=== PATIENT | female | born 1945 | race Caucasian/White ===

== ENCOUNTER 2016-09-15 07:53 | Outpatient (CLI) | payer MEDICARE ==
[2016-09-15 09:40] LABS: ALT (SGPT) 6 U/L (8-55); AST (SGOT) 13 U/L (5-34); Albumin 4.3 g/dL (3.4-4.8); Alkaline Phosphatase 66 U/L (40-150); Anion Gap 16 mmol/L (10-20); BUN (Urea Nitrogen) 13 mg/dL (9.8-20.1); Bilirubin, Total 0.4 mg/dL (0.2-1.2); Calc. Creatinine Clearance 0 mL/min (70-130); Calcium 9.6 mg/dL (7.8-10.44); Carbon Dioxide 25 mmol/L (23-31); Cardiac Risk 3.8 (Less than 4.5); Chloride 100 mmol/L (98-107); Cholesterol 241 mg/dl (< 200 Desired); Estimated GFR-MDRD 75; Globulin 3.1 g/dL (2.4-3.5); Glucose 98 mg/dL (80-115); HDL Cholesterol 64 mg/dL (>60 Neg Risk); LDL Cholesterol, Calculated 148 mg/dL; Potassium 4.3 mmol/L (3.5-5.1); Protein, Total 7.4 g/dL (6.0-8.3); Sodium 137 mmol/L (136-145); Triglycerides 143 mg/dL (Less than 150)
== END 2016-09-15 07:54 | disposition home or self-care (01) ==
LOC: MADLABBHPM 07:53
PROVIDERS: ATTEND Family Medicine
DX: I10 Essential (primary) hypertension (principal)
CPT/HCPCS: 80053; 80061

== ENCOUNTER 2016-12-22 09:56 | Outpatient (CLI) | payer MEDICARE | END 2016-12-22 09:57 | disposition home or self-care (01) | LOC: MADLAB 09:56 | DX: M81.0 Age-related osteoporosis without current pathological fracture (principal) | CPT/HCPCS: 36415; 82565 ==

== ENCOUNTER 2017-07-12 08:31 | Emergency (ER) | payer MEDICARE ==
[~2017-07-12 08:31] MED LIST: Sodium Chloride 0.9% 1,000 ML BAG ONE
[2017-07-12 09:39] LABS: ALT (SGPT) 7 U/L (8-55); AST (SGOT) 7 U/L (5-34); Acetaminophen Less than 6.0 mcg/mL (10.0-30.0); Alcohol Less than 10 mg/dL (Less than 10); Alkaline Phosphatase 52 U/L (40-150); Anion Gap 17 mmol/L (10-20); BUN (Urea Nitrogen) 32 mg/dL (9.8-20.1); Bilirubin, Total 0.5 mg/dL (0.2-1.2); Calc. Creatinine Clearance 0 mL/min (70-130); Calcium 7.7 mg/dL (7.8-10.44); Carbon Dioxide 16 mmol/L (23-31); Chloride 107 mmol/L (98-107); Estimated GFR-MDRD 57; Globulin 2.4 g/dL (2.4-3.5); Glucose 123 mg/dL (80-115); Potassium 4.4 mmol/L (3.5-5.1); Protein, Total 5.4 g/dL (6.0-8.3); Salicylate Less than 8.0 mg/dL (15.0-30.0); Sodium 136 mmol/L (136-145)
[2017-07-12 09:41] LABS: Hemoglobin 8.9 g/dL (12.0-16.0); Red Blood Cell (RBC) Count 2.67 mill/uL (4.20-5.40); White Blood Cell (WBC) Count 25.2 thou/uL (4.8-10.8)
[2017-07-12 09:42] LABS: Mean Corpuscular HGB CONC 14.4 g/dL (32.0-36.0); Mean Corpuscular Hemoglobin 33.4 pg (27.0-31.0); Mean Corpuscular Volume 97.6 fL (81.0-99.0)
[2017-07-12 09:45] LABS: Manual Diff?? YES; Mean Platelet Volume 6.6 fL (7.4-10.4); Platelet Count 421 thou/uL (130-400); RBC Distribution Width 14.4 % (11.5-14.5)
[2017-07-12 09:46] LABS: Anisocytosis SLIGHT = 6-15 cells (100X) (0-5/hpf); Band 28 % (5-11); Lymphocytes 7 % (21-51); MDiff Complete? YES; Monocytes 5 % (0-10); Neutrophil 60 % (42-75); PLT Morphology Comment Appears Increased
[2017-07-12 09:53] LABS: Bilirubin Negative (Negative); Blood, Urine Negative (Negative); Clarity Clear (Clear); Glucose, Urine (Dipstick) Negative (Negative); Leukocyte Small (Negative); Nitrite Negative (Negative); Protein, Urine (Dipstick) Negative (Neg-Trace); Specific Gravity, Urine 1.015 (1.005-1.030); Urobilinogen 0.2 mg/dL (0.2-1.0)
[2017-07-12] MEDS ORDERED: Acetaminophen/Codeine 30-300mg Tablet ONE (09:56)
[2017-07-12 10:00] LABS: Bacteria/HPF Rare-Few HPF (None Seen); RBC/HPF 0-3 HPF (0-3); Squamous Epithelial 0-3 HPF (0-3)
[2017-07-12 10:09] LABS: Amphetamine Not Detected (NotDetected); Barbiturates Screen Not Detected (NotDetected); Benzodiazepine Screen Not Detected (NotDetected); Cocaine Metabolite Screen Not Detected (NotDetected); Medtox Control Line Valid? VALID (VALID); Methadone Not Detected (NotDetected); Methamphetamine Not Detected (NotDetected); Opiate Screen Detected (NotDetected); Oxycodone Screen Not Detected (NotDetected); Phencyclidine (PCP) Not Detected (NotDetected); THC/Cannabinoid Screen Not Detected (NotDetected); Tricyclic Screen Not Detected (NotDetected)
--- NOTE | 2017-07-12 13:35 | RAD ---
CHEST ONE VIEW: HISTORY: Altered mental status. COMPARISON: 02/09/2010 FINDINGS: The cardiac silhouette is magnified by projection. The pulmonary vasculature is at the upper limits of normal. Calcified granuloma are consistent with healed granulomatous disease. No lobar consolida tion or pneumothorax is apparent. Calcification overlies the arterial structures. Deformity of the left humeral neck has the appearance of an old fracture with healed malalignment. desk monitor le ads overly the chest. IMPRESSION: 1. Atherosclerosis. 2. Chronic type findings are stable. POS: [facility]
== END 2017-07-12 11:28 | disposition short-term general hospital (02) ==
LOC: MADERS 08:31
DX: A41.9 Sepsis, unspecified organism (principal); D64.9 Anemia, unspecified; J44.9 Chronic obstructive pulmonary disease, unspecified; M81.0 Age-related osteoporosis without current pathological fracture; F17.210 Nicotine dependence, cigarettes, uncomplicated; Z79.82 Long term (current) use of aspirin; Z79.899 Other long term (current) drug therapy
CPT/HCPCS: 71045; 80053; 80306; 80307; 81001; 83605; 83880; 85025; 87040; 87081; 87086; 87430; 87804; 96361; 96365; A4353; J3370; J7050

== ENCOUNTER 2017-07-31 08:36 | Emergency (ER) | payer MEDICARE ==
[~2017-07-31 08:36] MED LIST changes: +Lactated Ringer's 1,000 ML BAG ONE
[2017-07-31 09:02] LABS: #Basophils 0.1 thou/uL (0.0-0.2); #Eosinphils 0.1 thou/uL (0.0-0.7); #Lymphocytes 1.4 thou/uL (1.20-3.40); #Monocytes 1.3 thou/uL (0.11-0.59); #Neutrophils 13.7 thou/uL (1.40-6.50); %Basophils 0.7 % (0.0-1.0); %Eosinophils 0.8 % (0.0-10.0); %Lymphocytes 8.4 % (21.0-51.0); %Neutrophils 82.1 % (42.0-75.0); Hemoglobin 9.8 g/dL (12.0-16.0); Mean Corpuscular HGB CONC 33.5 g/dL (32.0-36.0); Mean Corpuscular Volume 95.4 fl (81.0-99.0); Mean Platelet Volume 5.7 fL (7.4-10.4); Platelet Count 471 thou/uL (130-400); RBC Distribution Width 14.1 % (11.5-14.5); Red Blood Cell (RBC) Count 3.08 mill/uL (4.20-5.40); White Blood Cell (WBC) Count 16.6 thou/uL (4.8-10.8)
--- NOTE | 2017-07-31 09:23 | RAD ---
CHEST 1 VIEW: HISTORY: Fever. COMPARISON: Chest radiograph 07/12/17. FINDINGS: Mild increased interstitial markings in the lungs. No pneumothorax. Some basilar opacities. No acu te osseous abnormality. Old left humeral neck fracture. IMPRESSION: Mild increased interstitial and alveolar markings in the lungs suggesting edema. Infection is also a possibility. Followup recommended. POS: [facility]
[2017-07-31 09:25] LABS: ALT (SGPT) 12 U/L (8-55); AST (SGOT) 13 U/L (5-34); Albumin 3.5 g/dL (3.4-4.8); Alkaline Phosphatase 47 U/L (40-150); Anion Gap 18 mmol/L (10-20); BUN (Urea Nitrogen) 32 mg/dL (9.8-20.1); Calc. Creatinine Clearance 0 mL/min (70-130); Calcium 8.2 mg/dL (7.8-10.44); Carbon Dioxide 23 mmol/L (23-31); Chloride 103 mmol/L (98-107); Estimated GFR-MDRD 66; Globulin 2.7 g/dL (2.4-3.5); Glucose 95 mg/dL (80-115); Potassium 4.6 mmol/L (3.5-5.1); Protein, Total 6.2 g/dL (6.0-8.3); Sodium 139 mmol/L (136-145)
[2017-07-31] MEDS ORDERED: Vancomycin HCl 500 MG VIAL ONE (09:48)
[2017-07-31 09:57] LABS: Bilirubin Negative (Negative); Blood, Urine Negative (Negative); Clarity Clear (Clear); Glucose, Urine (Dipstick) Negative (Negative); Leukocyte Negative (Negative); Nitrite Negative (Negative); Protein, Urine (Dipstick) Negative (Neg-Trace); Specific Gravity, Urine 1.015 (1.005-1.030); Urobilinogen 0.2 mg/dL (0.2-1.0)
[2017-07-31] MEDS ORDERED: Ketorolac Tromethamine 30 MG/ML VIAL ONE (11:04)
== END 2017-07-31 12:50 | disposition short-term general hospital (02) ==
LOC: MADERS 08:36
DX: A41.9 Sepsis, unspecified organism (principal); M81.0 Age-related osteoporosis without current pathological fracture; J44.9 Chronic obstructive pulmonary disease, unspecified; F17.210 Nicotine dependence, cigarettes, uncomplicated
CPT/HCPCS: 51701; 71045; 80053; 81003; 83605; 85025; 87040; 87086; 96361; 96365; 96367; 96375; A4353; J1885; J1956; J3370; J7050; J7120

== ENCOUNTER 2017-11-29 12:57 | Outpatient (CLI) | payer MEDICARE ==
[2017-11-29 14:23] LABS: #Basophils 0.1 thou/uL (0.0-0.2); #Eosinphils 0.2 thou/uL (0.0-0.7); #Lymphocytes 2.1 thou/uL (1.20-3.40); #Monocytes 0.8 thou/uL (0.11-0.59); #Neutrophils 7.8 thou/uL (1.40-6.50); %Basophils 0.8 % (0.0-1.0); %Eosinophils 1.6 % (0.0-10.0); %Lymphocytes 18.8 % (21.0-51.0); %Monocytes 7.7 % (0.0-10.0); %Neutrophils 71.1 % (42.0-75.0); Hemoglobin 13.1 g/dL (12.0-16.0); Mean Corpuscular HGB CONC 33.4 g/dL (32.0-36.0); Mean Corpuscular Hemoglobin 30.7 pg (27.0-31.0); Mean Corpuscular Volume 91.9 fL (78.0-98.0); Mean Platelet Volume 5.5 fL (7.4-10.4); Platelet Count 482 thou/uL (130-400); RBC Distribution Width 13.3 % (11.5-14.5); Red Blood Cell (RBC) Count 4.25 mill/uL (4.20-5.40); White Blood Cell (WBC) Count 10.9 thou/uL (4.8-10.8)
[2017-11-29 14:31] LABS: ALT (SGPT) 7 U/L (8-55); AST (SGOT) 16 U/L (5-34); Albumin 3.9 g/dL (3.4-4.8); Alkaline Phosphatase 82 U/L (40-150); Anion Gap 20 mmol/L (10-20); BUN (Urea Nitrogen) 11 mg/dL (9.8-20.1); Bilirubin, Total 0.2 mg/dL (0.2-1.2); Calc. Creatinine Clearance 0 mL/min (70-130); Calcium 9.7 mg/dL (7.8-10.44); Carbon Dioxide 19 mmol/L (23-31); Chloride 96 mmol/L (98-107); Estimated GFR-MDRD 84; Globulin 3.5 g/dL (2.4-3.5); Glucose 87 mg/dL (80-115); Potassium 5.3 mmol/L (3.5-5.1); Protein, Total 7.4 g/dL (6.0-8.3); Sodium 130 mmol/L (136-145)
[2017-11-30 02:54] LABS: Iron 66 ug/dL (50-170)
== END 2017-11-29 12:58 | disposition home or self-care (01) ==
LOC: MADLABBHPM 12:57
PROVIDERS: ATTEND Family Medicine
DX: D50.9 Iron deficiency anemia, unspecified (principal)
CPT/HCPCS: 80053; 82728; 83540; 85025

== ENCOUNTER 2019-04-01 10:45 | Outpatient (CLI) | payer MEDICARE | END 2019-04-01 10:46 | disposition home or self-care (01) | LOC: MADLAB 10:45 | PROVIDERS: ATTEND Nurse Practitioner Acute Care | DX: Z51.81 Encounter for therapeutic drug level monitoring (principal); M79.2 Neuralgia and neuritis, unspecified; Z79.891 Long term (current) use of opiate analgesic | CPT/HCPCS: 80307; G0483 ==

== ENCOUNTER 2021-04-14 09:00 | Emergency (ER) | payer MEDICARE ==
[2021-04-14] MEDS ORDERED: Sodium Chloride 0.9% 100 ML BAG IVPB ONE (09:01)
[2021-04-14] MEDS ORDERED: Iopamidol 370 76% 125 ML VIAL FS ONE (09:01)
[2021-04-14 11:11] LABS: Bilirubin Negative (Negative); Blood, Urine Moderate (Negative); Clarity Slightly Cloudy (Clear); Glucose, Urine (Dipstick) Negative (Negative); Ketone, Urine Negative (Negative); Leukocyte Moderate (Negative); Nitrite Positive (Negative); Protein, Urine (Dipstick) 100 mg/dL (Neg-Trace); pH, Urine 5.5 (5.0-9.0)
[2021-04-14 11:18] LABS: WBC/HPF Greater Than 50 HPF (0-3)
[2021-04-14 11:19] LABS: Bacteria/HPF 3+ HPF (None Seen); Squamous Epithelial 0-3 HPF (0-3)
[2021-04-14 11:21] LABS: #Basophils 0.1 thou/uL (0.0-0.2); #Lymphocytes 0.6 thou/uL (1.20-3.40); #Monocytes 1.4 thou/uL (0.11-0.59); #Neutrophils 10.6 thou/uL (1.40-6.50); %Basophils 0.4 % (0.0-1.0); %Lymphocytes 4.9 % (21.0-51.0); %Monocytes 11.3 % (0.0-10.0); %Neutrophils 83.4 % (42.0-75.0); Hemoglobin 12.7 g/dL (12.0-16.0); Mean Corpuscular HGB CONC 32.1 g/dL (32.0-36.0); Mean Corpuscular Hemoglobin 31.3 pg (27.0-31.0); Mean Corpuscular Volume 97.6 fL (78.0-98.0); Platelet Count 373 thou/uL (130-400); Red Blood Cell (RBC) Count 4.07 mill/uL (4.20-5.40); White Blood Cell (WBC) Count 12.7 thou/uL (4.8-10.8)
[2021-04-14 11:22] LABS: ALT (SGPT) 9 U/L (8-55); AST (SGOT) 12 U/L (5-34); Albumin 3.9 g/dL (3.4-4.8); Alkaline Phosphatase 85 U/L (40-110); Anion Gap 16 mmol/L (10-20); BUN (Urea Nitrogen) 16 mg/dL (9.8-20.1); Bilirubin, Total 0.9 mg/dL (0.2-1.2); CRP (Inflammatory) 29.02 mg/dL (= or < 0.5); Calc. Creatinine Clearance 0 mL/min (70-130); Calcium 9.5 mg/dL (7.8-10.44); Carbon Dioxide 23 mmol/L (23-31); Chloride 98 mmol/L (98-107); Globulin 3.6 g/dL (2.4-3.5); Glucose 142 mg/dL (83-110); Potassium 3.8 mmol/L (3.5-5.1); Protein, Total 7.5 g/dL (5.8-8.1); Sodium 133 mmol/L (136-145)
[2021-04-14] MEDS ORDERED: Dextrose 5% in Water 250 ML ONE (11:35)
[2021-04-14] MEDS ORDERED: Sodium Chloride 0.9% 100 ML ONE ×2 (11:35→20:55)
[2021-04-14] MEDS ORDERED: metroNIDAZOLE 500 MG/100 ML BAG ONE (11:35)
[2021-04-14] MEDS ORDERED: Cefepime 2 GM VIAL ONE (11:35)
[2021-04-14 11:40] LABS: CKMB 2.3 ng/mL (0-6.6)
[2021-04-14 14:19] LABS: SARS-CoV-2 NAA Rapid Test Not Detected (NotDetected)
[2021-04-14 16:59] LABS: CKMB 2.4 ng/mL (0-6.6)
[2021-04-14] MEDS ORDERED: Aspirin Chewable 81 MG TAB ONE (17:20)
[2021-04-14] MEDS ORDERED: HYDROcodone/Acetaminophen 10/325 mg Tablet ONE (17:20)
[2021-04-14] MEDS ORDERED: Clopidogrel Bisulfate 75 MG TAB ONE (20:55)
[2021-04-14] MEDS ORDERED: cefTRIAXone\\ROCEPHIN 2 GM VIAL ONE (20:55)
[2021-04-14] MEDS ORDERED: Albuterol Sulfate 2.5 mg/3 ml Neb ONE (20:55)
[2021-04-14 22:00] LABS: CKMB 3.1 ng/mL (0-6.6)
[2021-04-15] MEDS ORDERED: Vancomycin HCl 750 MG VIAL ONE (02:01)
[2021-04-15] MEDS ORDERED: Sodium Chloride 0.9% 250 ML 250 ML ONE (02:01)
[2021-04-15] MEDS ORDERED: Albuterol Sulfate 2.5 mg/3 ml Neb ONE (02:01)
[2021-04-15] MEDS ORDERED: HYDROcodone/Acetaminophen 10/325 mg Tablet ONE (02:08)
== END 2021-04-15 03:27 | disposition short-term general hospital (02) ==
LOC: MADERS 09:00
DX: J43.9 Emphysema, unspecified (principal); J18.9 Pneumonia, unspecified organism; N39.0 Urinary tract infection, site not specified; R09.02 Hypoxemia; Z20.822 Contact with and (suspected) exposure to COVID-19; E11.9 Type 2 diabetes mellitus without complications; F17.210 Nicotine dependence, cigarettes, uncomplicated; Z79.82 Long term (current) use of aspirin; Z79.899 Other long term (current) drug therapy
CPT/HCPCS: 0240U; 71275; 80053; 82550; 82553; 83605; 84484 ×2; 85025; 85379; 86140; 87040; 87086; 93005; 94760; 96365; 96366; 96367; 99291; 99292; 81003; 81015; J0692; J0696; J3370; J3490; J7050; J7070; J7611; Q9967

== ENCOUNTER 2021-04-30 14:47 | Outpatient (CLI) | payer MEDICARE | END 2021-04-30 14:48 | disposition home or self-care (01) | LOC: MADRAD 14:47 | PROVIDERS: ATTEND Family Medicine | DX: J15.9 Unspecified bacterial pneumonia (principal); J84.10 Pulmonary fibrosis, unspecified | CPT/HCPCS: 71046 ==

== ENCOUNTER 2021-06-02 12:22 | Outpatient (CLI) | payer MEDICARE | END 2021-06-02 12:23 | disposition home or self-care (01) | LOC: MADRAD 12:22 | PROVIDERS: ATTEND Registered Nurse | DX: M47.816 Spondylosis without myelopathy or radiculopathy, lumbar region (principal); I70.0 Atherosclerosis of aorta | CPT/HCPCS: 72120 ==

== ENCOUNTER 2023-03-22 17:50 | Emergency (ER) | payer MEDICARE ==
[2023-03-22 19:11] LABS: #Basophils 0.1 thou/uL (0.0-0.2); #Lymphocytes 1.6 thou/uL (1.20-3.40); #Monocytes 0.9 thou/uL (0.11-0.59); #Neutrophils 6.4 thou/uL (1.40-6.50); %Basophils 0.9 % (0.0-1.0); %Eosinophils 0.5 % (0.0-10.0); %Lymphocytes 18.1 % (21.0-51.0); %Monocytes 9.9 % (0.0-10.0); %Neutrophils 70.6 % (42.0-75.0); Hematocrit 36.1 % (36.0-47.0); Hemoglobin 12.3 g/dL (12.0-16.0); Mean Corpuscular HGB CONC 34.1 g/dL (32.0-36.0); Mean Corpuscular Hemoglobin 32.6 pg (27.0-31.0); Mean Corpuscular Volume 95.6 fl (78.0-98.0); Mean Platelet Volume 7.2 fL (7.4-10.4); Platelet Count 309 10x3/uL (130-400); RBC Distribution Width 12.6 % (11.5-14.5); Red Blood Cell (RBC) Count 3.77 mill/uL (4.20-5.40)
[2023-03-22 19:28] LABS: ALT (SGPT) 9 U/L (8-55); AST (SGOT) 18 U/L (5-34); Albumin 4.2 g/dL (3.4-4.8); Alkaline Phosphatase 55 U/L (40-110); Anion Gap 19 mmol/L (10-20); BUN (Urea Nitrogen) 26 mg/dL (9.8-20.1); Bilirubin, Total 0.8 mg/dL (0.2-1.2); Calc. Creatinine Clearance 0 mL/min (70-130); Calcium 8.8 mg/dL (7.8-10.44); Carbon Dioxide 19 mmol/L (23-31); Chloride 95 mmol/L (98-107); Estimated GFR 57; Globulin 2.7 g/dL (2.4-3.5); Glucose 84 mg/dL (83-110); Protein, Total 6.9 g/dL (5.8-8.1); Sodium 129 mmol/L (136-145)
[2023-03-22 19:30] LABS: Bilirubin Small (Negative); Blood, Urine Negative (Negative); Clarity Clear (Clear); Glucose, Urine (Dipstick) Negative (Negative); Ketone, Urine 40 mg/dL (Negative); Leukocyte Negative (Negative); Nitrite Negative (Negative); Protein, Urine (Dipstick) 30 mg/dL (Neg-Trace); pH, Urine 5.5 (5.0-9.0)
[2023-03-22 19:33] LABS: Troponin I 0.485 ng/mL (< 0.028)
[2023-03-22 19:37] LABS: Bacteria/HPF Rare-Few HPF (None Seen); CAUTI Indications for Culture Alt mental st,lethar; RBC/HPF 0-3 HPF (0-3); Urine Culture Reflex No No; WBC/HPF 0-3 HPF (0-3)
[2023-03-22 22:51] LABS: Troponin I 0.947 ng/mL (< 0.028)
== END 2023-03-22 22:32 | disposition short-term general hospital (02) ==
LOC: MADERS 17:50
DX: I21.4 Non-ST elevation (NSTEMI) myocardial infarction (principal); G93.40 Encephalopathy, unspecified; F17.210 Nicotine dependence, cigarettes, uncomplicated; J44.9 Chronic obstructive pulmonary disease, unspecified; I73.9 Peripheral vascular disease, unspecified; E11.9 Type 2 diabetes mellitus without complications; Z79.82 Long term (current) use of aspirin; Z79.02 Long term (current) use of antithrombotics/antiplatelets; Z79.899 Other long term (current) drug therapy
CPT/HCPCS: 36415; 51701; 70450; 71045; 71250; 80053; 81001; 83605; 84484; 85025; 93005; 96360; 96372; J1650